=== PATIENT | male | born 1960 | race Caucasian/White ===

== ENCOUNTER 2017-06-16 17:01 | Emergency (ER) | payer OTHER ==
[~2017-06-16] VITALS: Ht 172.7 cm; Wt 79.4 kg
[2017-06-16 17:25] VITALS: BP 154/83
[2017-06-16] MEDS ORDERED: ORPHENADRINE CITRATE 60 MG/2 ML VIAL. IM ONE (17:45)
[2017-06-16] MEDS ORDERED: KETOROLAC 60 MG/2 ML INJ. IM ONE (17:45)
[2017-06-16] MEDS ORDERED: NAPR500T PO (17:49)
[2017-06-16] MEDS ORDERED: CYCL10TA2 PO (17:49)
[2017-06-16] MEDS ORDERED: TRAM50TA PO (17:49)
--- NOTE | 2017-06-16 17:50 | PHYS DOC ---
Past Medical History Past Medical History: Other Additional Past Medical Histor: bulging discs Past Surgical History: Other Additional Past Surgical Histo: hiatal hernia rx Alcohol Use: Heavy Drug Use: None Adult General Chief Complaint Chief Complaint: LOWER BACK PAIN OR INJURY [facility] HPI Patient is a 56 year old male presents to the emergency department with onset of right lower back pain. Patient states he has long-standing history of low back pain and sciatica. He states today while at work he was sitting on a stool when he twisted his upper body to reach for paperwork and had onset of the right low back pain. He states it is typical of his right low back pain however seems to be more intense than normal. There is no radiation. He has no loss of bowel or bladder control. No loss of function lower extremity's. Review of Systems Review of Systems Constitutional: Denies fever or chills [] Eyes: Denies change in visual acuity, redness, or eye pain [] HENT: Denies nasal congestion or sore throat [] Respiratory: Denies cough or shortness of breath [] Cardiovascular: No additional information not addressed in HPI [] GI: Denies abdominal pain, nausea, vomiting, bloody stools or diarrhea [] : Denies dysuria or hematuria [] Musculoskeletal: low back pain Integument: Denies rash or skin lesions [] Neurologic: Denies headache, focal weakness or sensory changes [] Endocrine: Denies polyuria or polydipsia [] Current Medications Current Medications Current Medications Medications (Trade) Dose Ordered Sig/Serjio Start Time Stop Time Status Last Admin Dose Admin Ketorolac Tromethamine (Toradol Im) 60 mg 1X ONCE 06/16/17 17:45 06/16/17 17:46 Orphenadrine Citrate (Norflex) 60 mg 1X ONCE 06/16/17 17:45 06/16/17 17:46 Allergies Allergies Allergies Coded Allergies Type Severity Reaction Last Updated Verified No Known Drug Allergies 06/16/17 No Physical Exam Physical Exam Constitutional: Well developed, well nourished, no acute distress, non-toxic appearance. [] HENT: Normocephalic, atraumatic, bilateral external ears normal, oropharynx moist, no oral exudates, nose normal. [] Eyes: PERRLA, EOMI, conjunctiva normal, no discharge. [] Neck: Normal range of motion, no tenderness, supple, no stridor. [] Cardiovascular:Heart rate regular rhythm, no murmur [] Lungs & Thorax: Bilateral breath sounds clear to auscultation [] Abdomen: Bowel sounds normal, soft, no tenderness, no masses, no pulsatile masses. [] Skin: Warm, dry, no erythema, no rash. [] Back: Tenderness in the right paraspinous muscles lumbar region. Mild tenderness across right sacroiliac crest. Negative Straight raise leg test. His muscle strength in lower extremities is 5 over 5. No saddle anesthesia. Neurovascular intact distally. Extremities: No tenderness, no cyanosis, no clubbing, ROM intact, no edema. [] Neurologic: Alert and oriented X 3, normal motor function, normal sensory function, no focal deficits noted. [] Psychologic: Affect normal, judgement normal, mood normal. [] Current Patient Data Vital Signs Vital Signs Date Time Temp Pulse Resp B/P (MAP) Pulse Ox O2 Delivery O2 Flow Rate FiO2 06/16/17 17:25 98.0 73 16 96 Room Air 98.0 EKG EKG [] Radiology/Procedures Radiology/Procedures [] Course & Med Decision Making Course & Med Decision Making Pertinent Labs and Imaging studies reviewed. (See chart for details) []Patient was given Toradol 60 mg IM and Norflex 60 mg IM in the emergency department. This history of chronic low back pain, he will be discharged home with prescriptions for Flexeril, Naprosyn, tramadol. He is to follow-up tomorrow workman's comp. Patient was advised return to the emergency department his symptoms or concerns or worsening of current condition. Patient is verbalized understanding. Left emergency department stable condition. Dragon Disclaimer Dragon Disclaimer This electronic medical record was generated, in whole or in part, using a voice recognition dictation system. Departure Departure Impression: Primary Impression: Low back pain with sciatica Disposition: 01 HOME, SELF-CARE Condition: STABLE Referrals: MAHIN HILL (PCP) Patient Instructions: Sciatica Scripts Tramadol Hcl (TRAMADOL HCL) 50 Mg Tablet 50 MG PO Q6H Y for PAIN, #20 TAB Prov: YANNI FERMIN STUDENT ADMISSIONS CLERK 06/16/17 Naproxen (NAPROSYN) 500 Mg Tablet 500 MG PO BID, #20 TAB Prov: YANNI FERMIN APRN 06/16/17 Cyclobenzaprine Hcl (CYCLOBENZAPRINE HCL) 10 Mg Tablet 10 MG PO TID, #30 TAB Prov: YANNI FERMIN APRN 06/16/17 Problem Qualifiers Primary Impression: Low back pain with sciatica Chronicity: acute Back pain laterality: right Sciatica laterality: sciatica of right side Qualified Codes: M54.41 - Lumbago with sciatica, right side YANNI FERMIN APRN Jun 16, 2017 17:50
== END 2017-06-16 18:00 | disposition home or self-care (01) ==
LOC: ER 17:01
DX: M54.41 Lumbago with sciatica, right side (principal); Z98.890 Other specified postprocedural states
CPT/HCPCS: 96372; 99284; J1885; J2360